=== PATIENT | female | born 1990 | race Caucasian/White ===

== ENCOUNTER 2018-09-16 03:53 | Emergency (ER) | payer OTHER ==
[~2018-09-16] VITALS: Ht 152.4 cm; Wt 52.2 kg
[~2018-09-16 03:53] MED LIST: FLAGYL500 MG PO; HYDROCODON-ACE1 EAC7 PO; IBUPROFEN 800800 M1 PO; IBUPROFEN 800800 MG PO; LOESTRIN1 EAC1 PO; NORCO 5-325 TA1 EACH PO
[2018-09-16] MEDS ORDERED: FLEXERIL PO (06:16)
[2018-09-16] MEDS ORDERED: ACETAMINOPHEN-1 EAC1 PO (06:16)
[2018-09-16 06:27] VITALS: BP 118/85
== END 2018-09-16 06:31 | disposition home or self-care (01) ==
LOC: M.ERS 03:53
DX: S40.212A Abrasion of left shoulder, initial encounter (principal); Z85.43 Personal history of malignant neoplasm of ovary; Z88.2 Allergy status to sulfonamides; V89.2XXA Person injured in unspecified motor-vehicle accident, traffic, initial encounter; Y93.89 Activity, other specified; Y92.89 Other specified places as the place of occurrence of the external cause; Y99.8 Other external cause status